=== PATIENT | male | born 1950 | race Caucasian/White ===

== ENCOUNTER 2016-08-11 15:22 | Outpatient (CLI) | payer MEDICARE, OTHER ==
[2016-08-11 15:43] LABS: Bilirubin Negative (Negative); Blood, Urine Negative (Negative); Clarity Clear (Clear); Glucose, Urine (Dipstick) Negative (Negative); Leukocyte Negative (Negative); Nitrite Negative (Negative); Protein, Urine (Dipstick) 30 mg/dL (Neg-Trace); Specific Gravity, Urine 1.015 (1.005-1.030); Urobilinogen 0.2 mg/dL (0.2-1.0); pH, Urine 8.5 (5.0-9.0)
[2016-08-11 15:46] LABS: RBC/HPF None Seen HPF (0-3); WBC/HPF None Seen HPF (0-3)
[2016-08-11 15:55] LABS: Anion Gap 17 mmol/L (10-20); BUN (Urea Nitrogen) 23 mg/dL (8.4-25.7); Calc. Creatinine Clearance 0 mL/min (70-130); Calcium 10.2 mg/dL (7.8-10.44); Carbon Dioxide 30 mmol/L (23-31); Chloride 100 mmol/L (98-107); Estimated GFR-MDRD 35; Glucose 113 mg/dL (80-115); Potassium 3.7 mmol/L (3.5-5.1); Sodium 143 mmol/L (136-145)
== END 2016-08-11 15:23 | disposition home or self-care (01) ==
LOC: MADLABBHPM 15:22
PROVIDERS: ATTEND Family Medicine
DX: N18.3 Chronic kidney disease, stage 3 (moderate) (principal); R30.0 Dysuria
CPT/HCPCS: 36415; 80048; 81001; 87086

== ENCOUNTER 2016-08-21 07:54 | Outpatient (CLI) | payer MEDICARE, OTHER ==
[2016-08-21 08:48] LABS: Anion Gap 18 mmol/L (10-20); BUN (Urea Nitrogen) 27 mg/dL (8.4-25.7); Calc. Creatinine Clearance 0 mL/min (70-130); Carbon Dioxide 25 mmol/L (23-31); Chloride 101 mmol/L (98-107); Estimated GFR-MDRD 39; Glucose 134 mg/dL (80-115); Potassium 3.5 mmol/L (3.5-5.1); Sodium 140 mmol/L (136-145); Uric Acid 6.2 mg/dL (3.5-7.2)
== END 2016-08-21 07:55 | disposition home or self-care (01) ==
LOC: MADLABBHPM 07:54
PROVIDERS: ATTEND Family Medicine
DX: I10 Essential (primary) hypertension (principal)
CPT/HCPCS: 36415; 80048; 84550

== ENCOUNTER 2016-11-18 07:31 | Outpatient (CLI) | payer MEDICARE, OTHER ==
[2016-11-18 08:20] LABS: #Basophils 0.1 thou/uL (0.0-0.2); #Eosinphils 0.1 thou/uL (0.0-0.7); #Lymphocytes 0.7 thou/uL (1.20-3.40); #Monocytes 0.6 thou/uL (0.11-0.59); #Neutrophils 3.9 thou/uL (1.40-6.50); %Basophils 1.3 % (0.0-1.0); %Eosinophils 2.4 % (0.0-10.0); %Lymphocytes 13.1 % (21.0-51.0); %Monocytes 10.5 % (0.0-10.0); %Neutrophils 72.8 % (42.0-75.0); Hemoglobin 12.4 g/dL (14.0-18.0); Mean Corpuscular HGB CONC 33.7 g/dL (32.0-36.0); Mean Corpuscular Hemoglobin 33.3 pg (27.0-31.0); Mean Platelet Volume 7.1 fL (7.4-10.4); Platelet Count 235 thou/uL (130-400); RBC Distribution Width 13.3 % (11.5-14.5); Red Blood Cell (RBC) Count 3.72 mill/uL (4.70-6.10); White Blood Cell (WBC) Count 5.4 thou/uL (4.8-10.8)
[2016-11-18 08:36] LABS: ALT (SGPT) 17 U/L (0-55); AST (SGOT) 14 U/L (5-34); Albumin 4.3 g/dL (3.4-4.8); Alkaline Phosphatase 55 U/L (40-150); Anion Gap 15 mmol/L (10-20); BUN (Urea Nitrogen) 26 mg/dL (8.4-25.7); Bilirubin, Direct 0.1 mg/dL (0.1-0.3); Bilirubin, Total 0.3 mg/dL (0.2-1.2); Calc. Creatinine Clearance 0 mL/min (70-130); Calcium 9.3 mg/dL (7.8-10.44); Carbon Dioxide 24 mmol/L (23-31); Cardiac Risk 3.4 (Less than 4.5); Chloride 106 mmol/L (98-107); Cholesterol 193 mg/dL (< 200 Desired); Estimated GFR-MDRD 57; Glucose 111 mg/dL (80-115); HDL Cholesterol 57 mg/dL (>60 Neg Risk); LDL Cholesterol, Calculated 86 mg/dL; Potassium 4.2 mmol/L (3.5-5.1); Protein, Total 6.6 g/dL (5.8-8.1); Sodium 141 mmol/L (136-145); Uric Acid 4.7 mg/dL (3.5-7.2)
[2016-11-18 09:40] LABS: Triglycerides 248 mg/dL (Less than 150)
== END 2016-11-18 07:32 | disposition home or self-care (01) ==
LOC: MADLABBHPM 07:31
PROVIDERS: ATTEND Family Medicine
DX: N18.3 Chronic kidney disease, stage 3 (moderate) (principal); D63.1 Anemia in chronic kidney disease; M10.9 Gout, unspecified; E78.5 Hyperlipidemia, unspecified
CPT/HCPCS: 36415; 80048; 80061; 80076; 84550; 85025

== ENCOUNTER 2017-02-17 07:24 | Outpatient (CLI) | payer MEDICARE, OTHER ==
[2017-02-17 07:52] LABS: Bilirubin Negative (Negative); Clarity Clear (Clear); Glucose, Urine (Dipstick) Negative (Negative); Leukocyte Negative (Negative); Nitrite Negative (Negative); Protein, Urine (Dipstick) Negative (Neg-Trace); Urobilinogen 0.2 mg/dL (0.2-1.0)
[2017-02-17 07:53] LABS: Blood, Urine Negative (Negative)
[2017-02-17 08:03] LABS: #Basophils 0.1 thou/uL (0.0-0.2); #Eosinphils 0.1 thou/uL (0.0-0.7); #Lymphocytes 0.8 thou/uL (1.20-3.40); #Monocytes 0.6 thou/uL (0.11-0.59); #Neutrophils 4.4 thou/uL (1.40-6.50); %Basophils 1.4 % (0.0-1.0); %Eosinophils 2.2 % (0.0-10.0); %Lymphocytes 13.1 % (21.0-51.0); %Monocytes 10.5 % (0.0-10.0); %Neutrophils 72.8 % (42.0-75.0); Hemoglobin 11.8 g/dL (14.0-18.0); Mean Corpuscular HGB CONC 33.7 g/dL (32.0-36.0); Mean Corpuscular Hemoglobin 33.1 pg (27.0-31.0); Mean Corpuscular Volume 98.1 fl (80.0-94.0); Platelet Count 231 thou/uL (130-400); RBC Distribution Width 12.2 % (11.5-14.5); Red Blood Cell (RBC) Count 3.56 mill/uL (4.70-6.10); White Blood Cell (WBC) Count 6.1 thou/uL (4.8-10.8)
[2017-02-17 08:10] LABS: ALT (SGPT) 13 U/L (8-55); AST (SGOT) 13 U/L (5-34); Albumin 4.1 g/dL (3.4-4.8); Alkaline Phosphatase 59 U/L (40-150); Anion Gap 13 mmol/L (10-20); BUN (Urea Nitrogen) 20 mg/dL (8.4-25.7); BUN/Creatinine Ratio 16.13; Bilirubin, Direct 0.1 mg/dL (0.1-0.3); Bilirubin, Total 0.3 mg/dL (0.2-1.2); Calc. Creatinine Clearance 0 mL/min (70-130); Calcium 9.4 mg/dL (7.8-10.44); Carbon Dioxide 25 mmol/L (23-31); Cardiac Risk 3.3 (Less than 4.5); Chloride 108 mmol/L (98-107); Cholesterol 186 mg/dl (< 200 Desired); Estimated GFR-MDRD 58; Glucose 97 mg/dL (80-115); HDL Cholesterol 56 mg/dL (>60 Neg Risk); LDL Cholesterol, Calculated 76 mg/dL; Phosphorus 2.9 mg/dL (2.3-4.7); Potassium 4.1 mmol/L (3.5-5.1); Protein, Total 6.6 g/dL (5.8-8.1); Sodium 142 mmol/L (136-145); Triglycerides 270 mg/dL (Less than 150); Uric Acid 4.4 mg/dL (3.5-7.2)
[2017-02-17 17:26] LABS: Creatinine, Urine 105.15 mg/dL (63-166); Protein, Urine Random Quant Less than 10 mg/dL
== END 2017-02-17 07:25 | disposition home or self-care (01) ==
LOC: MADLABBHPM 07:24
PROVIDERS: ATTEND Family Medicine
DX: E78.5 Hyperlipidemia, unspecified (principal); I12.9 Hypertensive chronic kidney disease with stage 1 through stage 4 chronic kidney disease, or unspecified chronic kidney disease; N18.3 Chronic kidney disease, stage 3 (moderate); M10.9 Gout, unspecified
CPT/HCPCS: 36415; 80061; 80069; 80076; 81003; 82570; 84156; 84443; 84550; 85025; 85652

== ENCOUNTER 2018-12-27 07:54 | Outpatient (CLI) | payer MEDICARE, BC ==
--- NOTE | 2018-12-27 08:14 | RAD ---
EXAM: Chest PA and lateral: HISTORY: Asthma. Bronchitis COMPARISON: 06/17/2015 FINDINGS: Lung paz are clear. Calcified granuloma in the right lung base is stable. Calcified right hilar ly mph nodes are unchanged. Vascular markings are normal. Heart and mediastinum appear unremarkable. Vascularity is normal. Surgical clips in the right axilla again noted. Osseous structures are unremarkable. IMPRESSION: No acute finding
== END 2018-12-27 07:55 | disposition home or self-care (01) ==
LOC: MADRAD 07:54
PROVIDERS: ATTEND Family Medicine
DX: J45.909 Unspecified asthma, uncomplicated (principal)
CPT/HCPCS: 71046

== ENCOUNTER 2021-07-30 12:10 | Emergency (ER) | payer MEDICARE, BC ==
[2021-07-30 12:43] LABS: #Basophils 0.1 thou/uL (0.0-0.2); #Lymphocytes 0.5 thou/uL (1.20-3.40); #Monocytes 0.9 thou/uL (0.11-0.59); %Basophils 0.7 % (0.0-1.0); %Eosinophils 0.1 % (0.0-10.0); %Lymphocytes 5.1 % (21.0-51.0); %Monocytes 8.2 % (0.0-10.0); %Neutrophils 85.8 % (42.0-75.0); Hemoglobin 11.4 g/dL (14.0-18.0); Mean Corpuscular Volume 94.3 fL (78.0-98.0); Mean Platelet Volume 6.3 fL (7.4-10.4); Platelet Count 280 thou/uL (130-400); RBC Distribution Width 11.7 % (11.5-14.5); Red Blood Cell (RBC) Count 3.55 mill/uL (4.70-6.10); White Blood Cell (WBC) Count 10.5 thou/uL (4.8-10.8)
[2021-07-30 12:56] LABS: ALT (SGPT) 14 U/L (8-55); AST (SGOT) 14 U/L (5-34); Albumin 4.5 g/dL (3.4-4.8); Alkaline Phosphatase 47 U/L (40-110); Anion Gap 16 mmol/L (10-20); BUN (Urea Nitrogen) 12 mg/dL (8.4-25.7); Bilirubin, Total 0.5 mg/dL (0.2-1.2); Calc. Creatinine Clearance 0 mL/min (70-130); Calcium 7.9 mg/dL (7.8-10.44); Carbon Dioxide 24 mmol/L (23-31); Chloride 94 mmol/L (98-107); Globulin 2.4 g/dL (2.4-3.5); Glucose 134 mg/dL (83-110); Potassium 3.1 mmol/L (3.5-5.1); Protein, Total 6.9 g/dL (5.8-8.1); Sodium 131 mmol/L (136-145)
[2021-07-30 13:16] LABS: Bilirubin Negative (Negative); Blood, Urine Negative (Negative); Clarity Clear (Clear); Glucose, Urine (Dipstick) Negative (Negative); Ketone, Urine 15 mg/dL (Negative); Leukocyte Negative (Negative); Nitrite Negative (Negative); Protein, Urine (Dipstick) Negative (Neg-Trace); Specific Gravity, Urine 1.015 (1.005-1.030); Urobilinogen 0.2 mg/dL (Less than 2)
[2021-07-30] MEDS ORDERED: Potassium Chloride 20 MEQ TAB ONE (13:30)
== END 2021-07-30 14:05 | disposition home or self-care (01) ==
LOC: MADERS 12:10
DX: E87.6 Hypokalemia (principal); E86.0 Dehydration; R33.9 Retention of urine, unspecified; I10 Essential (primary) hypertension; E78.5 Hyperlipidemia, unspecified; E78.00 Pure hypercholesterolemia, unspecified; K21.9 Gastro-esophageal reflux disease without esophagitis; Z85.72 Personal history of non-Hodgkin lymphomas; Z96.0 Presence of urogenital implants; Z79.82 Long term (current) use of aspirin; Z79.899 Other long term (current) drug therapy
CPT/HCPCS: 36415; 51702; 80053; 81003; 85025

== ENCOUNTER 2021-09-29 14:14 | Inpatient (IN) | payer MEDICARE, BC ==
[2021-09-29 14:49] VITALS: BMI 23.6
[2021-09-29] MEDS ORDERED: Calcium Carbonate 500 MG ChewTAB PO PRN (15:14)
[2021-09-29 15:49] LABS: #Basophils 0.1 thou/uL (0.0-0.2); #Lymphocytes 0.6 thou/uL (1.20-3.40); #Monocytes 0.7 thou/uL (0.11-0.59); #Neutrophils 7.2 thou/uL (1.40-6.50); %Basophils 0.9 % (0.0-1.0); %Eosinophils 0.5 % (0.0-10.0); %Lymphocytes 7.3 % (21.0-51.0); %Monocytes 8.1 % (0.0-10.0); %Neutrophils 83.2 % (42.0-75.0); Hemoglobin 10.5 g/dL (14.0-18.0); Mean Corpuscular HGB CONC 33.7 g/dL (32.0-36.0); Mean Corpuscular Hemoglobin 30.7 pg (27.0-31.0); Mean Corpuscular Volume 91.2 fL (78.0-98.0); Mean Platelet Volume 6.1 fL (7.4-10.4); Platelet Count 406 thou/uL (130-400); RBC Distribution Width 11.3 % (11.5-14.5); Red Blood Cell (RBC) Count 3.41 mill/uL (4.70-6.10); White Blood Cell (WBC) Count 8.6 thou/uL (4.8-10.8)
[2021-09-29 15:56] LABS: Bilirubin Negative (Negative); Blood, Urine Negative (Negative); Glucose, Urine (Dipstick) Negative (Negative); Ketone, Urine Negative (Negative); Leukocyte Large (Negative); Nitrite Negative (Negative); Protein, Urine (Dipstick) Trace mg/dL (Neg-Trace); Specific Gravity, Urine 1.015 (1.005-1.030); Urobilinogen 0.2 mg/dL (Less than 2)
[2021-09-29 15:59] LABS: Clarity Hazy (Clear)
[2021-09-29 16:03] LABS: ALT (SGPT) 51 U/L (8-55); AST (SGOT) 20 U/L (5-34); Albumin 3.9 g/dL (3.4-4.8); Alkaline Phosphatase 65 U/L (40-110); Anion Gap 15 mmol/L (10-20); BUN (Urea Nitrogen) 27 mg/dL (8.4-25.7); Bilirubin, Total 0.3 mg/dL (0.2-1.2); Calc. Creatinine Clearance 61 mL/min (70-130); Calcium 9.8 mg/dL (7.8-10.44); Carbon Dioxide 24 mmol/L (23-31); Chloride 100 mmol/L (98-107); Globulin 2.9 g/dL (2.4-3.5); Glucose 177 mg/dL (83-110); Potassium 3.6 mmol/L (3.5-5.1); Protein, Total 6.8 g/dL (5.8-8.1); Sodium 135 mmol/L (136-145); Uric Acid 4.6 mg/dL (3.5-7.2)
[2021-09-29 16:07] LABS: RBC/HPF 0-3 HPF (0-3); Squamous Epithelial None Seen HPF (0-3); WBC/HPF Greater Than 50 HPF (0-3)
[2021-09-29 16:08] LABS: Bacteria/HPF 4+ HPF (None Seen)
[2021-09-29 20:03] VITALS: BP 160/71; TEMP 98.1
[2021-09-29] MEDS ORDERED: TERAZOSIN 1 MG CAPSULE PO SCH (21:00)
[2021-09-29] MEDS ORDERED: Atorvastatin Calcium 40 MG TAB PO SCH (21:00)
[2021-09-29] MEDS ORDERED: Silodosin 8 MG CAP PO SCH (21:00)
[2021-09-29] MEDS ORDERED: Baclofen 10 MG TAB PO SCH (21:00)
[2021-09-29] MEDS ORDERED: NASACORT EA NARE SCH (21:00)
[2021-09-29] MEDS ORDERED: Docusate 100 MG CAP PO SCH (21:00)
[2021-09-29] MEDS ORDERED: Fluticasone Propionate Nasal Spray 16 gm Bottle NASAL SCH (21:00)
[2021-09-29] MEDS ORDERED: Acetaminophen/Codeine 30-300mg Tablet PO SCH (21:00)
[2021-09-30 03:09] LABS: SARS-CoV-2 PCR by NAA Not Detected (NotDetected)
[2021-09-30] MEDS ORDERED: Allopurinol 100 MG TAB PO SCH (09:00)
[2021-09-30] MEDS ORDERED: Finasteride 5 MG TAB PO SCH (09:00)
[2021-09-30] MEDS ORDERED: Hydrochlorothiazide 25 MG TAB PO SCH (09:00)
[2021-09-30] MEDS ORDERED: Atenolol 25 MG TAB PO SCH (09:00)
[2021-09-30] MEDS ORDERED: hydrALAZINE 25 MG TAB PO SCH (09:00)
== END 2021-09-29 21:36 | disposition short-term general hospital (02) | DRG 52 ==
LOC: MADMS 14:35
PROVIDERS: ADMIT Family Medicine; ATTEND Family Medicine
DX: G82.20 Paraplegia, unspecified (principal); C85.90 Non-Hodgkin lymphoma, unspecified, unspecified site; A52.79 Other symptomatic late syphilis; N13.8 Other obstructive and reflux uropathy; R53.1 Weakness; I12.9 Hypertensive chronic kidney disease with stage 1 through stage 4 chronic kidney disease, or unspecified chronic kidney disease; N18.30 Chronic kidney disease, stage 3 unspecified; N40.1 Benign prostatic hyperplasia with lower urinary tract symptoms; K59.00 Constipation, unspecified; M10.9 Gout, unspecified; K21.9 Gastro-esophageal reflux disease without esophagitis; E78.5 Hyperlipidemia, unspecified
CPT/HCPCS: 80053; 81001; 84443; 84550; 85025; U0003; U0005

== ENCOUNTER 2021-10-06 20:43 | Inpatient (IN) | payer MEDICARE, BC ==
[2021-10-06] MEDS ORDERED: Fluticasone Propionate Nasal Spray 16 gm Bottle NASAL PRN (21:53)
[2021-10-06] MEDS ORDERED: Dexamethasone 4 MG TAB PO SCH (22:00)
[2021-10-06] MEDS ORDERED: HYTRIN 1 MG PO SCH (22:00)
[2021-10-06] MEDS ORDERED: Baclofen 10 MG TAB PO SCH (22:00)
[2021-10-06] MEDS ORDERED: Docusate 100 MG CAP PO SCH (22:00)
[2021-10-06] MEDS ORDERED: Atorvastatin Calcium 40 MG TAB PO SCH (22:00)
[2021-10-06] MEDS ORDERED: Silodosin 8 MG CAP PO SCH (22:00)
[2021-10-07] MEDS ORDERED: FLU VACC QS2021-22(65YR UP)/PF 240 MCG/0.7 ML SYRINGE IM ONE (09:00)
[2021-10-07] MEDS: Docusate 100 MG CAP PO SCH ×2 (09:13→21:04)
[2021-10-07] MEDS: Dexamethasone 4 MG TAB PO SCH ×2 (09:13→17:10)
[2021-10-07] MEDS: Atenolol 25 MG TAB PO SCH (09:14)
[2021-10-07] MEDS: Allopurinol 100 MG TAB PO SCH (09:14)
[2021-10-07] MEDS: Finasteride 5 MG TAB PO SCH (09:14)
[2021-10-07] MEDS: Baclofen 10 MG TAB PO SCH ×3 (09:14→21:04)
[2021-10-07] MEDS: Hydrochlorothiazide 25 MG TAB PO SCH (09:15)
[2021-10-07] MEDS: hydrALAZINE 25 MG TAB PO SCH (09:15)
[2021-10-07] MEDS: Acetaminophen 325 MG TAB PO PRN (14:08)
[2021-10-07] MEDS: Silodosin 8 MG CAP PO SCH (21:04)
[2021-10-07] MEDS: HYTRIN 1 MG PO SCH (21:04)
[2021-10-07] MEDS: Atorvastatin Calcium 40 MG TAB PO SCH (21:04)
[2021-10-08] MEDS: Docusate 100 MG CAP PO SCH ×2 (08:32→20:44)
[2021-10-08] MEDS: Atenolol 25 MG TAB PO SCH (08:32)
[2021-10-08] MEDS: Enoxaparin Sodium 40 MG/0.4 ML SYRINGE SC SCH (08:33)
[2021-10-08] MEDS: Dexamethasone 4 MG TAB PO SCH ×2 (08:33→17:10)
[2021-10-08] MEDS: hydrALAZINE 25 MG TAB PO SCH (08:33)
[2021-10-08] MEDS: Allopurinol 100 MG TAB PO SCH (08:33)
[2021-10-08] MEDS: Baclofen 10 MG TAB PO SCH ×3 (08:33→20:44)
[2021-10-08] MEDS: Finasteride 5 MG TAB PO SCH (08:33)
[2021-10-08] MEDS: Hydrochlorothiazide 25 MG TAB PO SCH (08:33)
[2021-10-08] MEDS: Acetaminophen 325 MG TAB PO PRN ×2 (09:23→14:26)
[2021-10-08] MEDS: Silodosin 8 MG CAP PO SCH (20:44)
[2021-10-08] MEDS: Atorvastatin Calcium 40 MG TAB PO SCH (20:44)
[2021-10-08] MEDS: HYTRIN 1 MG PO SCH (20:45)
[2021-10-09] MEDS: Dexamethasone 4 MG TAB PO SCH ×2 (08:35→17:28)
[2021-10-09] MEDS: Allopurinol 100 MG TAB PO SCH (08:35)
[2021-10-09] MEDS: Baclofen 10 MG TAB PO SCH ×3 (08:37→20:23)
[2021-10-09] MEDS: Enoxaparin Sodium 40 MG/0.4 ML SYRINGE SC SCH (08:38)
[2021-10-09] MEDS: Docusate 100 MG CAP PO SCH ×2 (08:38→20:23)
[2021-10-09] MEDS: Finasteride 5 MG TAB PO SCH (08:41)
[2021-10-09] MEDS: hydrALAZINE 25 MG TAB PO SCH (08:50)
[2021-10-09] MEDS: Atenolol 25 MG TAB PO SCH (08:53)
[2021-10-09] MEDS: Hydrochlorothiazide 25 MG TAB PO SCH (08:55)
[2021-10-09] MEDS: Acetaminophen 325 MG TAB PO PRN ×2 (11:06→20:24)
[2021-10-09] MEDS: Calcium Carbonate 500 MG ChewTAB PO PRN ×2 (17:04→20:38)
[2021-10-09] MEDS: Silodosin 8 MG CAP PO SCH (20:23)
[2021-10-09] MEDS: Atorvastatin Calcium 40 MG TAB PO SCH (20:23)
[2021-10-09] MEDS: TERAZOSIN 1 MG CAPSULE PO SCH (20:23)
[2021-10-10] MEDS: Allopurinol 100 MG TAB PO SCH (08:03)
[2021-10-10] MEDS: Dexamethasone 4 MG TAB PO SCH ×2 (08:03→16:43)
[2021-10-10] MEDS: Docusate 100 MG CAP PO SCH ×2 (08:04→20:19)
[2021-10-10] MEDS: Atenolol 25 MG TAB PO SCH (08:04)
[2021-10-10] MEDS: Baclofen 10 MG TAB PO SCH ×3 (08:05→20:20)
[2021-10-10] MEDS: hydrALAZINE 25 MG TAB PO SCH (08:07)
[2021-10-10] MEDS: Hydrochlorothiazide 25 MG TAB PO SCH (08:08)
[2021-10-10] MEDS: Calcium Carbonate 500 MG ChewTAB PO PRN (08:08)
[2021-10-10] MEDS: Finasteride 5 MG TAB PO SCH (08:08)
[2021-10-10] MEDS: Acetaminophen 325 MG TAB PO PRN ×2 (08:08→13:05)
[2021-10-10] MEDS: Enoxaparin Sodium 40 MG/0.4 ML SYRINGE SC SCH (08:09)
[2021-10-10] MEDS: Silodosin 8 MG CAP PO SCH (20:20)
[2021-10-10] MEDS: Atorvastatin Calcium 40 MG TAB PO SCH (20:24)
[2021-10-10] MEDS: TERAZOSIN 1 MG CAPSULE PO SCH (20:24)
[2021-10-11] MEDS ORDERED: Baclofen 10 MG TAB PO PRN (07:30)
[2021-10-11] MEDS: Enoxaparin Sodium 40 MG/0.4 ML SYRINGE SC SCH (09:00)
[2021-10-11] MEDS: Dexamethasone 4 MG TAB PO SCH ×2 (09:00→17:16)
[2021-10-11] MEDS: Atenolol 25 MG TAB PO SCH (09:00)
[2021-10-11] MEDS: Hydrochlorothiazide 25 MG TAB PO SCH (09:00)
[2021-10-11] MEDS: Finasteride 5 MG TAB PO SCH (09:06)
[2021-10-11] MEDS: hydrALAZINE 25 MG TAB PO SCH (09:06)
[2021-10-11] MEDS: Allopurinol 100 MG TAB PO SCH (09:07)
[2021-10-11] MEDS: Docusate 100 MG CAP PO SCH ×2 (09:07→20:08)
[2021-10-11] MEDS: Acetaminophen 325 MG TAB PO PRN (09:09)
[2021-10-11] MEDS: Silodosin 8 MG CAP PO SCH (20:08)
[2021-10-11] MEDS: Atorvastatin Calcium 40 MG TAB PO SCH (20:08)
[2021-10-11] MEDS: TERAZOSIN 1 MG CAPSULE PO SCH (20:08)
[2021-10-12] MEDS: Allopurinol 100 MG TAB PO SCH (08:55)
[2021-10-12] MEDS: Finasteride 5 MG TAB PO SCH (08:55)
[2021-10-12] MEDS: Atenolol 25 MG TAB PO SCH (08:55)
[2021-10-12] MEDS: Dexamethasone 4 MG TAB PO SCH ×2 (08:55→17:35)
[2021-10-12] MEDS: Hydrochlorothiazide 25 MG TAB PO SCH (08:56)
[2021-10-12] MEDS: hydrALAZINE 25 MG TAB PO SCH (08:56)
[2021-10-12] MEDS: Acetaminophen 325 MG TAB PO PRN (08:56)
[2021-10-12] MEDS: Enoxaparin Sodium 40 MG/0.4 ML SYRINGE SC SCH (08:57)
[2021-10-12] MEDS: Docusate 100 MG CAP PO SCH ×2 (08:57→20:05)
[2021-10-12] MEDS: Calcium Carbonate 500 MG ChewTAB PO PRN (17:39)
[2021-10-12] MEDS: Atorvastatin Calcium 40 MG TAB PO SCH (20:05)
[2021-10-12] MEDS: Silodosin 8 MG CAP PO SCH (20:05)
[2021-10-12] MEDS: TERAZOSIN 1 MG CAPSULE PO SCH (20:05)
[2021-10-13] MEDS: hydrALAZINE 25 MG TAB PO SCH (08:43)
[2021-10-13] MEDS: Atenolol 25 MG TAB PO SCH (08:44)
[2021-10-13] MEDS: Dexamethasone 4 MG TAB PO SCH ×2 (08:44→17:06)
[2021-10-13] MEDS: Allopurinol 100 MG TAB PO SCH (08:44)
[2021-10-13] MEDS: Docusate 100 MG CAP PO SCH ×2 (08:46→20:02)
[2021-10-13] MEDS: Finasteride 5 MG TAB PO SCH (08:46)
[2021-10-13] MEDS: Enoxaparin Sodium 40 MG/0.4 ML SYRINGE SC SCH (08:47)
[2021-10-13 11:58] LABS: Bilirubin Negative (Negative); Blood, Urine Trace (Negative); Clarity Cloudy (Clear); Glucose, Urine (Dipstick) Negative (Negative); Ketone, Urine Negative (Negative); Leukocyte Moderate (Negative); Nitrite Negative (Negative); Protein, Urine (Dipstick) 30 mg/dL (Neg-Trace); Urobilinogen 0.2 mg/dL (Less than 2); pH, Urine 5.5 (5.0-9.0)
[2021-10-13] MEDS: Acetaminophen 325 MG TAB PO PRN (12:02)
[2021-10-13 12:31] LABS: Bacteria/HPF 4+ HPF (None Seen); RBC/HPF 0-3 HPF (0-3); Squamous Epithelial None Seen HPF (0-3); WBC/HPF Greater Than 50 HPF (0-3)
[2021-10-13 15:45] LABS: SARS-CoV-2 PCR by NAA Not Detected (NotDetected)
[2021-10-13] MEDS: Ciprofloxacin 500 MG TAB PO SCH (20:02)
[2021-10-13] MEDS: Silodosin 8 MG CAP PO SCH (20:02)
[2021-10-13] MEDS: TERAZOSIN 1 MG CAPSULE PO SCH (20:02)
[2021-10-13] MEDS: Atorvastatin Calcium 40 MG TAB PO SCH (20:02)
[2021-10-13] MEDS: Acetaminophen/Codeine 30-300mg Tablet PO PRN (20:14)
[2021-10-14] MEDS: Ciprofloxacin 500 MG TAB PO SCH ×2 (04:59→20:34)
[2021-10-14 05:34] LABS: #Basophils 0.1 thou/uL (0.0-0.2); #Lymphocytes 1.1 thou/uL (1.20-3.40); #Monocytes 0.8 thou/uL (0.11-0.59); #Neutrophils 9.3 thou/uL (1.40-6.50); %Basophils 0.5 % (0.0-1.0); %Eosinophils 0.2 % (0.0-10.0); %Lymphocytes 9.4 % (21.0-51.0); %Monocytes 7.3 % (0.0-10.0); %Neutrophils 82.6 % (42.0-75.0); Hemoglobin 11.8 g/dL (14.0-18.0); Mean Corpuscular HGB CONC 34.3 g/dL (32.0-36.0); Mean Corpuscular Volume 90.4 fL (78.0-98.0); Mean Platelet Volume 7.5 fL (7.4-10.4); Platelet Count 259 thou/uL (130-400); Red Blood Cell (RBC) Count 3.79 mill/uL (4.70-6.10); White Blood Cell (WBC) Count 11.2 thou/uL (4.8-10.8)
[2021-10-14 05:46] LABS: Anion Gap 17 mmol/L (10-20); BUN (Urea Nitrogen) 29 mg/dL (8.4-25.7); Calc. Creatinine Clearance 61 mL/min (70-130); Calcium 9.6 mg/dL (7.8-10.44); Carbon Dioxide 23 mmol/L (23-31); Chloride 101 mmol/L (98-107); Glucose 138 mg/dL (83-110); Potassium 4.4 mmol/L (3.5-5.1); Sodium 137 mmol/L (136-145)
[2021-10-14] MEDS ORDERED: Baclofen 10 MG TAB PO PRN (07:55)
[2021-10-14] MEDS: Enoxaparin Sodium 40 MG/0.4 ML SYRINGE SC SCH (09:08)
[2021-10-14] MEDS: Allopurinol 100 MG TAB PO SCH (09:09)
[2021-10-14] MEDS: hydrALAZINE 25 MG TAB PO SCH (09:09)
[2021-10-14] MEDS: Atenolol 25 MG TAB PO SCH (09:09)
[2021-10-14] MEDS: Dexamethasone 4 MG TAB PO SCH ×2 (09:09→16:59)
[2021-10-14] MEDS: Docusate 100 MG CAP PO SCH ×2 (09:09→20:34)
[2021-10-14] MEDS: Finasteride 5 MG TAB PO SCH (09:10)
[2021-10-14] MEDS: Acetaminophen 325 MG TAB PO PRN (09:17)
[2021-10-14] MEDS: Polyethylene Glycol 3350 17 GM Packet PO PRN (17:33)
[2021-10-14] MEDS: Silodosin 8 MG CAP PO SCH (20:34)
[2021-10-14] MEDS: Atorvastatin Calcium 40 MG TAB PO SCH (20:34)
[2021-10-14] MEDS: TERAZOSIN 1 MG CAPSULE PO SCH (20:35)
[2021-10-15] MEDS: Ciprofloxacin 500 MG TAB PO SCH ×2 (05:46→20:08)
[2021-10-15] MEDS: Finasteride 5 MG TAB PO SCH (09:43)
[2021-10-15] MEDS: Dexamethasone 4 MG TAB PO SCH (09:43)
[2021-10-15] MEDS: Atenolol 25 MG TAB PO SCH (09:44)
[2021-10-15] MEDS: Enoxaparin Sodium 40 MG/0.4 ML SYRINGE SC SCH (09:44)
[2021-10-15] MEDS: Docusate 100 MG CAP PO SCH ×2 (09:44→20:08)
[2021-10-15] MEDS: Allopurinol 100 MG TAB PO SCH (09:44)
[2021-10-15] MEDS: hydrALAZINE 25 MG TAB PO SCH (09:44)
[2021-10-15] MEDS: Acetaminophen/Codeine 30-300mg Tablet PO PRN ×2 (09:49→20:07)
[2021-10-15] MEDS: Polyethylene Glycol 3350 17 GM Packet PO PRN (14:58)
[2021-10-15] MEDS: Atorvastatin Calcium 40 MG TAB PO SCH (20:07)
[2021-10-15] MEDS: Silodosin 8 MG CAP PO SCH (20:07)
[2021-10-15] MEDS: TERAZOSIN 1 MG CAPSULE PO SCH (20:08)
[2021-10-16] MEDS: Ciprofloxacin 500 MG TAB PO SCH ×2 (05:24→19:57)
[2021-10-16] MEDS: Dexamethasone 4 MG TAB PO SCH (08:38)
[2021-10-16] MEDS: Allopurinol 100 MG TAB PO SCH (08:38)
[2021-10-16] MEDS: hydrALAZINE 25 MG TAB PO SCH (08:39)
[2021-10-16] MEDS: Atenolol 25 MG TAB PO SCH (08:39)
[2021-10-16] MEDS: Enoxaparin Sodium 40 MG/0.4 ML SYRINGE SC SCH (08:40)
[2021-10-16] MEDS: Finasteride 5 MG TAB PO SCH (08:40)
[2021-10-16] MEDS: Docusate 100 MG CAP PO SCH ×2 (08:40→20:43)
[2021-10-16] MEDS: Acetaminophen/Codeine 30-300mg Tablet PO PRN (09:41)
[2021-10-16] MEDS: Polyethylene Glycol 3350 17 GM Packet PO PRN (15:16)
[2021-10-16] MEDS: TERAZOSIN 1 MG CAPSULE PO SCH (20:43)
[2021-10-16] MEDS: Silodosin 8 MG CAP PO SCH (20:43)
[2021-10-16] MEDS: Atorvastatin Calcium 40 MG TAB PO SCH (20:43)
[2021-10-17] MEDS: Ciprofloxacin 500 MG TAB PO SCH ×2 (05:28→19:48)
[2021-10-17] MEDS: Polyethylene Glycol 3350 17 GM Packet PO PRN (08:28)
[2021-10-17] MEDS: Docusate 100 MG CAP PO SCH ×2 (08:30→20:58)
[2021-10-17] MEDS: Allopurinol 100 MG TAB PO SCH (08:30)
[2021-10-17] MEDS: Dexamethasone 4 MG TAB PO SCH (08:31)
[2021-10-17] MEDS: Finasteride 5 MG TAB PO SCH (08:34)
[2021-10-17] MEDS: Enoxaparin Sodium 40 MG/0.4 ML SYRINGE SC SCH (08:34)
[2021-10-17] MEDS: hydrALAZINE 25 MG TAB PO SCH ×2 (08:47→20:58)
[2021-10-17] MEDS: Atenolol 25 MG TAB PO SCH (08:47)
[2021-10-17] MEDS: Silodosin 8 MG CAP PO SCH (20:58)
[2021-10-17] MEDS: Atorvastatin Calcium 40 MG TAB PO SCH (20:58)
[2021-10-17] MEDS: TERAZOSIN 1 MG CAPSULE PO SCH (20:59)
[2021-10-18] MEDS: Ciprofloxacin 500 MG TAB PO SCH ×2 (05:33→20:33)
[2021-10-18] MEDS ORDERED: Dexamethasone 4 MG TAB ONE (08:02)
[2021-10-18] MEDS: Atenolol 25 MG TAB PO SCH (08:45)
[2021-10-18] MEDS: Finasteride 5 MG TAB PO SCH (08:45)
[2021-10-18] MEDS: Allopurinol 100 MG TAB PO SCH (08:45)
[2021-10-18] MEDS: hydrALAZINE 25 MG TAB PO SCH ×2 (08:46→20:33)
[2021-10-18] MEDS: Dexamethasone 4 MG TAB PO SCH (08:46)
[2021-10-18] MEDS: Docusate 100 MG CAP PO SCH ×2 (08:46→20:33)
[2021-10-18] MEDS: Enoxaparin Sodium 40 MG/0.4 ML SYRINGE SC SCH (08:46)
[2021-10-18] MEDS: Polyethylene Glycol 3350 17 GM Packet PO PRN (08:47)
[2021-10-18] MEDS: Acetaminophen 325 MG TAB PO PRN (17:41)
[2021-10-18] MEDS: Atorvastatin Calcium 40 MG TAB PO SCH (20:33)
[2021-10-18] MEDS: Silodosin 8 MG CAP PO SCH (20:33)
[2021-10-18] MEDS: TERAZOSIN 1 MG CAPSULE PO SCH (20:34)
[2021-10-19] MEDS: Ciprofloxacin 500 MG TAB PO SCH ×2 (05:41→19:42)
[2021-10-19] MEDS: Finasteride 5 MG TAB PO SCH (08:46)
[2021-10-19] MEDS: Dexamethasone 4 MG TAB PO SCH (08:46)
[2021-10-19] MEDS: Polyethylene Glycol 3350 17 GM Packet PO PRN (08:46)
[2021-10-19] MEDS: Allopurinol 100 MG TAB PO SCH (08:46)
[2021-10-19] MEDS: hydrALAZINE 25 MG TAB PO SCH ×2 (08:47→19:42)
[2021-10-19] MEDS: Enoxaparin Sodium 40 MG/0.4 ML SYRINGE SC SCH (08:47)
[2021-10-19] MEDS: Docusate 100 MG CAP PO SCH ×2 (08:47→19:41)
[2021-10-19] MEDS: Acetaminophen 325 MG TAB PO PRN (12:12)
[2021-10-19] MEDS: Atenolol 25 MG TAB PO SCH (12:15)
[2021-10-19] MEDS ORDERED: Loperamide HCl 2 MG CAP ONE (19:40)
[2021-10-19] MEDS: Atorvastatin Calcium 40 MG TAB PO SCH (19:42)
[2021-10-19] MEDS: TERAZOSIN 1 MG CAPSULE PO SCH (19:42)
[2021-10-19] MEDS: Silodosin 8 MG CAP PO SCH (19:42)
[2021-10-20] MEDS ORDERED: Ciprofloxacin 500 MG TAB ONE (05:18)
[2021-10-20] MEDS: Acetaminophen 325 MG TAB PO PRN ×2 (05:26→10:46)
[2021-10-20] MEDS: Ciprofloxacin 500 MG TAB PO SCH ×2 (05:26→20:41)
[2021-10-20] MEDS: Polyethylene Glycol 3350 17 GM Packet PO PRN (08:50)
[2021-10-20] MEDS: Enoxaparin Sodium 40 MG/0.4 ML SYRINGE SC SCH (08:51)
[2021-10-20] MEDS: Atenolol 25 MG TAB PO SCH (08:52)
[2021-10-20] MEDS: Allopurinol 100 MG TAB PO SCH (08:52)
[2021-10-20] MEDS: Docusate 100 MG CAP PO SCH ×2 (08:52→20:41)
[2021-10-20] MEDS: Finasteride 5 MG TAB PO SCH (08:53)
[2021-10-20] MEDS: Dexamethasone 4 MG TAB PO SCH (08:53)
[2021-10-20] MEDS: hydrALAZINE 25 MG TAB PO SCH ×2 (08:53→20:41)
[2021-10-20 17:58] LABS: SARS-CoV-2 PCR by NAA Not Detected (NotDetected)
[2021-10-20] MEDS: Atorvastatin Calcium 40 MG TAB PO SCH (20:41)
[2021-10-20] MEDS: Silodosin 8 MG CAP PO SCH (20:41)
[2021-10-20 21:37] VITALS: BMI 23.0
[2021-10-20] MEDS: TERAZOSIN 1 MG CAPSULE PO SCH (23:59)
[2021-10-21] MEDS: Acetaminophen 325 MG TAB PO PRN (05:06)
[2021-10-21] MEDS: Docusate 100 MG CAP PO SCH (08:14)
[2021-10-21] MEDS: Atenolol 25 MG TAB PO SCH (08:14)
[2021-10-21] MEDS: Finasteride 5 MG TAB PO SCH (08:14)
[2021-10-21] MEDS: Allopurinol 100 MG TAB PO SCH (08:15)
[2021-10-21] MEDS: Polyethylene Glycol 3350 17 GM Packet PO PRN (08:15)
[2021-10-21] MEDS: Enoxaparin Sodium 40 MG/0.4 ML SYRINGE SC SCH (08:15)
[2021-10-21] MEDS: hydrALAZINE 25 MG TAB PO SCH (08:15)
[2021-10-21] MEDS: Dexamethasone 4 MG TAB PO SCH (08:15)
[2021-10-21 08:24] VITALS: BP 128/65; TEMP 97.8
== END 2021-10-21 12:00 | disposition home or self-care (01) | DRG 947 ==
LOC: MADMS 20:43
PROVIDERS: ADMIT Family Medicine; ATTEND Family Medicine
DX: R53.1 Weakness (principal); G82.50 Quadriplegia, unspecified; N13.8 Other obstructive and reflux uropathy; N39.0 Urinary tract infection, site not specified; Z20.822 Contact with and (suspected) exposure to COVID-19; I12.9 Hypertensive chronic kidney disease with stage 1 through stage 4 chronic kidney disease, or unspecified chronic kidney disease; N18.30 Chronic kidney disease, stage 3 unspecified; N40.1 Benign prostatic hyperplasia with lower urinary tract symptoms; M10.9 Gout, unspecified; R33.8 Other retention of urine; B96.1 Klebsiella pneumoniae [K. pneumoniae] as the cause of diseases classified elsewhere; K21.9 Gastro-esophageal reflux disease without esophagitis; E78.5 Hyperlipidemia, unspecified; Z79.899 Other long term (current) drug therapy; Z85.72 Personal history of non-Hodgkin lymphomas; Z92.21 Personal history of antineoplastic chemotherapy; Z79.891 Long term (current) use of opiate analgesic; Z98.1 Arthrodesis status
CPT/HCPCS: 80048; 81001; 85025; 87077; 87086; 87186; J1650; J8540; U0003; U0005

== ENCOUNTER 2022-12-31 13:34 | Emergency (ER) | payer MEDICARE, BC ==
[2022-12-31] MEDS ORDERED: Magnesium 2 GM/50 ML BAG (IN WATER) ONE (14:42)
[2022-12-31 14:47] LABS: #Basophils 0.1 thou/uL (0.0-0.2); #Eosinphils 0.1 thou/uL (0.0-0.7); #Lymphocytes 0.9 thou/uL (1.20-3.40); #Monocytes 0.7 thou/uL (0.11-0.59); #Neutrophils 5.3 thou/uL (1.40-6.50); %Basophils 0.9 % (0.0-1.0); %Eosinophils 1.2 % (0.0-10.0); %Lymphocytes 12.8 % (21.0-51.0); %Monocytes 9.6 % (0.0-10.0); %Neutrophils 75.5 % (42.0-75.0); Hemoglobin 11.8 g/dL (14.0-18.0); Mean Corpuscular HGB CONC 33.4 g/dL (32.0-36.0); Mean Corpuscular Hemoglobin 31.6 pg (27.0-31.0); Mean Corpuscular Volume 94.4 fl (78.0-98.0); Mean Platelet Volume 9.9 fL (7.4-10.4); Platelet Count 248 10x3/uL (130-400); RBC Distribution Width 13.8 % (11.5-14.5); Red Blood Cell (RBC) Count 3.74 mill/uL (4.70-6.10)
[2022-12-31 15:01] LABS: ALT (SGPT) 19 U/L (8-55); AST (SGOT) 15 U/L (5-34); Albumin 4.1 g/dL (3.4-4.8); Alkaline Phosphatase 89 U/L (40-110); Anion Gap 17 mmol/L (10-20); BUN (Urea Nitrogen) 12 mg/dL (8.4-25.7); Bilirubin, Total 0.4 mg/dL (0.2-1.2); Calc. Creatinine Clearance 0 mL/min (70-130); Carbon Dioxide 25 mmol/L (23-31); Chloride 105 mmol/L (98-107); Estimated GFR 45; Globulin 2.5 g/dL (2.4-3.5); Glucose 130 mg/dL (83-110); Potassium 3.6 mmol/L (3.5-5.1); Protein, Total 6.6 g/dL (5.8-8.1); Sodium 143 mmol/L (136-145)
[2022-12-31 15:12] LABS: Calcium 6.5 mg/dL (7.8-10.44); Magnesium Less than 0.6 mg/dL (1.6-2.6)
[2022-12-31 15:48] LABS: Bilirubin Negative (Negative); Blood, Urine Trace (Negative); Clarity Cloudy (Clear); Glucose, Urine (Dipstick) Negative (Negative); Ketone, Urine Negative (Negative); Leukocyte Moderate (Negative); Nitrite Negative (Negative); Protein, Urine (Dipstick) Negative (Neg-Trace); Urobilinogen 0.2 mg/dL (Less than 2); pH, Urine 6.5 (5.0-9.0)
[2022-12-31 15:49] LABS: Bacteria/HPF 3+ HPF (None Seen); Squamous Epithelial 0-3 HPF (0-3); WBC/HPF Greater Than 50 HPF (0-3)
[2022-12-31 15:50] LABS: CAUTI Indications for Culture Dysuria,urgency,freq; Urine Culture Reflex Yes Yes
[2022-12-31] MEDS ORDERED: Calcium Carbonate 500 MG ChewTAB ONE (16:26)
[2022-12-31 16:31] LABS: Magnesium 1.2 mg/dL (1.6-2.6)
== END 2022-12-31 17:20 | disposition home or self-care (01) ==
LOC: MADERS 13:34
DX: I12.9 Hypertensive chronic kidney disease with stage 1 through stage 4 chronic kidney disease, or unspecified chronic kidney disease (principal); N18.30 Chronic kidney disease, stage 3 unspecified; K21.9 Gastro-esophageal reflux disease without esophagitis; E83.42 Hypomagnesemia; E83.51 Hypocalcemia; T50.905A Adverse effect of unspecified drugs, medicaments and biological substances, initial encounter; Z79.899 Other long term (current) drug therapy; Z79.82 Long term (current) use of aspirin
CPT/HCPCS: 80053; 81001; 83735; 85025; 87086; 96374; J3475

== ENCOUNTER 2023-01-17 19:56 | Emergency (ER) | payer MEDICARE, BC ==
[2023-01-17] MEDS ORDERED: traMADol HCl 50 MG TAB ONE (20:29)
[2023-01-18 06:06] LABS: Bilirubin Negative (Negative); Blood, Urine Negative (Negative); Clarity Clear (Clear); Glucose, Urine (Dipstick) Negative (Negative); Ketone, Urine Negative (Negative); Leukocyte Small (Negative); Nitrite Negative (Negative); Protein, Urine (Dipstick) 30 mg/dL (Neg-Trace); Specific Gravity, Urine 1.015 (1.005-1.030); Urobilinogen 0.2 mg/dL (Less than 2)
[2023-01-18 06:09] LABS: Bacteria/HPF 1+ HPF (None Seen); CAUTI Indications for Culture Urological Procedure; RBC/HPF 0-3 HPF (0-3); Squamous Epithelial 0-3 HPF (0-3); WBC/HPF Greater than 50 HPF (0-3)
[2023-01-18 06:10] LABS: Urine Culture Reflex Yes Yes
== END 2023-01-17 22:15 | disposition home or self-care (01) ==
LOC: MADERS 19:56
DX: R50.9 Fever, unspecified (principal); K21.9 Gastro-esophageal reflux disease without esophagitis; E78.00 Pure hypercholesterolemia, unspecified; Z79.899 Other long term (current) drug therapy
CPT/HCPCS: 81001; 87077; 87086; 87186; 99283

== ENCOUNTER 2025-04-25 07:38 | Outpatient (CLI) | payer MEDICARE, BC ==
[2025-04-25 08:17] LABS: #Basophils 0.1 thou/uL (0.0-0.2); #Eosinophils 0.1 thou/uL (0.0-0.7); #Lymphocytes 1.1 thou/uL (1.20-3.40); #Monocytes 0.6 thou/uL (0.11-0.59); #Neutrophils 2.7 thou/uL (1.40-6.50); %Basophils 1.2 % (0.0-1.0); %Eosinophils 2.0 % (0.0-10.0); %Lymphocytes 25.2 % (21.0-51.0); %Monocytes 12.4 % (0.0-10.0); %Neutrophils 59.2 % (42.0-75.0); Hematocrit 33.2 % (42.0-52.0); Hemoglobin 10.9 g/dL (14.0-18.0); Mean Corpuscular Hemoglobin 30.1 pg (27.0-31.0); Mean Corpuscular Volume 91.6 fl (78.0-98.0); Platelet Count 271 10x3/uL (130-400); Red Blood Cell (RBC) Count 3.62 mill/uL (4.70-6.10); White Blood Cell (WBC) Count 4.5 10x3/uL (4.8-10.8)
[2025-04-25 08:33] LABS: ALT (SGPT) 9 U/L (Less than 45); AST (SGOT) 14 U/L (11-34); Albumin 3.7 g/dL (3.1-4.5); Alkaline Phosphatase 115 U/L (40-110); Anion Gap 16 mmol/L (10-20); BUN (Urea Nitrogen) 14 mg/dL (8.4-25.7); Bilirubin, Total 0.3 mg/dL (0.3-1.2); Calc. Creatinine Clearance 0 mL/min (70-130); Calcium 8.9 mg/dL (7.8-10.44); Carbon Dioxide 21 mmol/L (23-31); Cardiac Risk 4.1 (Less than 4.5); Chloride 103 mmol/L (98-107); Cholesterol 134 mg/dl (< 200 Desired); Globulin 2.6 g/dL (2.4-3.5); Glucose 101 mg/dL (83-110); HDL Cholesterol 33 mg/dL (>60 Neg Risk); LDL Cholesterol, Calculated 65 mg/dL; Potassium 4.2 mmol/L (3.5-5.1); Sodium 136 mmol/L (136-145); Triglycerides 178 mg/dL (Less than 150)
== END 2025-04-25 07:39 | disposition home or self-care (01) ==
LOC: MADLAB 07:38
PROVIDERS: ATTEND Family Medicine
DX: I10 Essential (primary) hypertension (principal); D63.8 Anemia in other chronic diseases classified elsewhere; E78.5 Hyperlipidemia, unspecified
CPT/HCPCS: 36415; 80053; 80061; 85025

== ENCOUNTER 2025-07-24 08:22 | Outpatient (CLI) | payer MEDICARE, BC ==
[2025-07-24 09:56] LABS: Glucose, Urine (Dipstick) Negative (Negative); Leukocyte Large (Negative); Protein, Urine (Dipstick) Trace mg/dL (Neg-Trace); RBC/HPF 0-3 HPF (0-3); Specific Gravity, Urine 1.015 (1.005-1.030)
[2025-07-24 09:57] LABS: Bacteria/HPF 2+ HPF (None Seen); WBC/HPF Greater than 50 HPF (0-3)
[2025-07-24 10:07] LABS: Urine Culture Reflex Yes Yes
== END 2025-07-24 08:23 | disposition home or self-care (01) ==
LOC: MADLAB 08:22
PROVIDERS: ATTEND Urology
DX: R33.9 Retention of urine, unspecified (principal)
CPT/HCPCS: 81001; 87077; 87086; 87186